=== PATIENT | male | born 1945 | race Caucasian/White ===

== ENCOUNTER → 2020-11-11 11:06 | Outpatient (BNVA) | payer MEDICARE, OTHER, SELFPAY | PROVIDERS: PCP Internal Medicine; Visit Provider Nurse Practitioner Family | DX: R42 Dizziness and giddiness (principal); I25.10 Atherosclerotic heart disease of native coronary artery without angina pectoris; E78.5 Hyperlipidemia, unspecified; I10 Essential (primary) hypertension; Z95.5 Presence of coronary angioplasty implant and graft; Z79.899 Other long term (current) drug therapy | CPT/HCPCS: 99212 ==

== ENCOUNTER → 2020-11-18 15:06 | Outpatient (BNVA) | payer MEDICARE, OTHER, SELFPAY | PROVIDERS: PCP Internal Medicine; Visit Provider Nurse Practitioner Family | DX: R42 Dizziness and giddiness (principal); I25.10 Atherosclerotic heart disease of native coronary artery without angina pectoris; E78.5 Hyperlipidemia, unspecified; I10 Essential (primary) hypertension; Z95.5 Presence of coronary angioplasty implant and graft | CPT/HCPCS: Q3014 ==

== ENCOUNTER → 2021-02-14 10:19 | Outpatient (BNVA) | payer MEDICARE, OTHER, SELFPAY | PROVIDERS: PCP Internal Medicine; Visit Provider Internal Medicine Cardiovascular Disease | DX: I25.10 Atherosclerotic heart disease of native coronary artery without angina pectoris (principal); R42 Dizziness and giddiness | CPT/HCPCS: 99212 ==

== ENCOUNTER → 2021-08-01 12:59 | Outpatient (BNVA) | payer MEDICARE, OTHER, SELFPAY | PROVIDERS: PCP Internal Medicine; Visit Provider Internal Medicine Cardiovascular Disease | DX: I25.10 Atherosclerotic heart disease of native coronary artery without angina pectoris (principal); R42 Dizziness and giddiness | CPT/HCPCS: 93005; 99212 ==

== ENCOUNTER → 2022-02-06 10:39 | Outpatient (BNVA) | payer MEDICARE, OTHER, SELFPAY | PROVIDERS: PCP Internal Medicine; Visit Provider Internal Medicine Cardiovascular Disease | DX: I25.10 Atherosclerotic heart disease of native coronary artery without angina pectoris (principal); I10 Essential (primary) hypertension | CPT/HCPCS: 99212 ==

== ENCOUNTER → 2022-08-14 10:51 | Outpatient (BNVA) | payer MEDICARE, OTHER, SELFPAY | PROVIDERS: Visit Provider Internal Medicine Cardiovascular Disease | DX: R07.9 Chest pain, unspecified (principal); I25.10 Atherosclerotic heart disease of native coronary artery without angina pectoris; I10 Essential (primary) hypertension | CPT/HCPCS: 93005; 99212 ==

== ENCOUNTER → 2022-08-24 09:43 | Outpatient (REF) | payer MEDICARE, OTHER, SELFPAY ==
--- NOTE | 2022-08-24 09:46 | CA_ITS ---
Transthoracic Echocardiogram Patient (Last, First, Middle): Silas Cazares, Gender: Male Date of : 1945 Age: 76 Procedure Date: 08/24/2022 Procedure Type: Transthoracic Echocardiogram Location: OP Height: 167.64 cm Weight: 77.11 kg BSA: 1.87 m2 Heart Rate: bpm BP: 130 / 80 mmHg Application Technician: TO Referring MD: Ruddy Ramos MD Symptoms: I25.10 - Atherosclerotic heart disease of [place] coronary artery without... Study Quality: Fair/Contrast Conclusions: - Normal left ventricular size and systolic function. There is mildly increased left ventricular wall thickness. The visually estimated ejection fraction is between 55-60%. - E/E prime ratio is between 8 and 15 consistent with indeterminate filling pressures. - Mildly increased right ventricular cavity size. There is normal right ventricular systolic function. - There is mild calcification of the aortic valve. There is no aortic valve stenosis. - There is mild dilatation of the ascending aorta measuring 3.50 cm. Findings Procedure Information Contrast agent, definity, is being given per protocol without apparent complications. Left Ventricle Normal left ventricular size and systolic function. There is mildly increased left ventricular wall thickness. The visually estimated ejection fraction is between 55-60%. There is no evidence of regional wall motion abnormalities. Abnormal diastolic function is noted. Spectral Doppler is indicative of a pseudonormal filling pattern. E/E prime ratio is between 8 and 15 consistent with indeterminate filling pressures. Right Ventricle Mildly increased right ventricular cavity size. There is normal right ventricular systolic function. Atria The left atrium is normal in size. The right atrium is normal in size. Aortic Valve Normal aortic valve structure and function. There is mild calcification of the aortic valve. There is no aortic valve stenosis. There is no aortic valve regurgitation. Mitral Valve The mitral valve appears normal. There is mild mitral annular calcification. There is no mitral valve regurgitation. There is no mitral valve stenosis. Pulmonic Valve Normal pulmonic valve structure and function. There is trace pulmonic valve regurgitation. Tricuspid Valve Normal tricuspid valve structure and function. There is no tricuspid valve regurgitation. Normal right atrial pressure. There is no evidence of pulmonary hypertension. Great Vessels There is mild dilatation of the ascending aorta measuring 3.50 cm. The visualized portions of the pulmonary artery and branches are normal. Venous The inferior vena cava is normal in size and collapses greater than 50% with inspiration. Pericardium/Pleural Prominent epicardial adipose tissue noted. There is no evidence of pericardial effusion. Prior Study Comparison No prior study available for comparison. Measurements 2D Linear Measurements IVSd: 1.18 0.6-0.9/0.6-1.0 cm LVIDd: 4.40 3.9-5.3/4.2-5.9 cm LVIDd Index: 2.35 2.4-3.2/2.2-3.1 cm/m2 LVIDs: 3.05 2.0-3.6 cm LVPWd: 1.01 0.7-1.1 cm LA Diam: 3.40 2.7-3.8/3.0-4.0 cm LAIDs Index: 1.82 1.5-2.3 cm/m2 LV Mass: 209.05 67-162/88-224 g LV Mass Index: 111.79 43-95/49-115 g/m2 LVOT Diam: 2.00 3.0+(-)1.3 cm 2D Systolic Function EF 4C: 62.60 >55% EF 2C: 60.70 >55% EF BiP: 61.80 >55% Mitral Valve MV Pk E: 0.76 MV PK A: 0.59 MV Decel Time: 221.00 E/A: 1.30 E'Lateral: 7.94 E'Medial: 5.87 E/E' Med: 13.00 E/E' Lat: 9.60 PHT: 65.00 MVA PHT: 3.38 Decel [place]: 3.46 Aortic Valve AoV Pk Suresh: 1.32 AoV Mn Suresh: 0.92 AoV VTI: 0.30 AoV Pk Grad: 7.00 Aov Mn Grad: 4.00 BOBBY Cont.VTI: 2.76 LVOT LVOT Pk Suresh: 1.13 LVOT Mn Suresh: 0.75 LVOT VTI: 0.26 LVOT Pk Grad: 5.00 LVOT Mn Grad: 3.00 LVOT Diam: 2.00 LVOT Area: 3.14 Diastolic Function MV Pk E: 0.76 MV Pk A: 0.59 E/A: 1.30 E'Medial: 5.87 E/E' Med: 13.00 E' Laterial: 7.94 E/E' Lat: 9.60 Right Ventricle TAPSE (mm): 22.60 TVS' Suresh: 10.90 Tricuspid Valve TR Pk Suresh: 1.55 TR Pk Grad: 10.00 RA Press: 3.00 RVSP: 13.00 Great Vessels Aorta Sinus of Valsalva: 3.21 2.0-3.[address] [place]: 2.55 1.7-3.4 cm Ao Asc: 3.50 2.1-3.4 cm Updated in Other Vendor System with Status of Final Rob Walker MD electronically signed on 08/26/2022 9:47:14 PM with status of Final
== END ==
LOC: HO.CARD 09:43
PROVIDERS: Visit Provider Internal Medicine Cardiovascular Disease
DX: I25.10 Atherosclerotic heart disease of native coronary artery without angina pectoris (principal)
CPT/HCPCS: 93306; Q9957

== ENCOUNTER → 2022-08-29 09:43 | Outpatient (REF) | payer MEDICARE, OTHER, SELFPAY ==
--- NOTE | ~2022-08-29 | NM_ITS ---
Exercise Myocardial perfusion study Indication: Exertional chest pain to evaluate for myocardial ischemia Technique: The patient was brought in for an exercise perfusion study on 08/29/2022. Patient performed exercise as per Scooby protocol and was injected 25 mCi of sestamibi was given intravenously one target HR was achieved. Images were obtained using the SPECT gamma camera interlaced with the gating device. Images were obtained in supine position. Resting perfusion study was performed on 09/06/2022. Patient was administered 25 mCi of sestamibi intravenously at rest. Images were then obtained in supine position. Images obtained with and without CT attenuation. Total DLP 84 mGy-cm. Images were processed with the software and compared side to side in short axis, horizontal long axis and vertical long axis views. Findings: The stress perfusion study showed non attenuated images show moderately reduced uptake in the basal inferior wall of the LV myocardium as well as moderately severely reduced uptake in the basal inferoseptal wall of the LV myocardium. Attenuated corrected images show mildly reduced uptake in the inferior and inferoseptal wall of the cardiac.. The gated study shows normal LV systolic function with calculated LVEF of 70%. LV cavity is normal in size. The gated study shows normal systolic wall thickening and contraction of all segments. There is no transient ischemic dilation. Resting study shows improved uptake in the inferoseptum and inferior wall of the LV myocardium. Gating at rest reveals normal systolic wall motion with ejection fraction at 62%. The findings are consistent with inferior and inferoseptal ischemia in RCA territory. NM/NM cardiolite stress test Impression: 1. RCA territory ischemia 2. Gated LVEF is 71% 3. Transient ischemic dilatation not present Stress EKG is positive for ischemia
--- NOTE | 2022-08-29 09:45 | CA_ITS ---
Acquisition Time: 2022-08-29 10:06:00 Total Exercise Time: 00:06:40 Test Indications: Fatigue CHEST PAIN Medications: ASA CLOPIDOGREL ISOSORBIDE METOPROLOL ROSUVASTATIN Protocol: JILL Max HR: 118 BPM 83% of Pred: 142 BPM Max BP: 150/068 mmHG Max Work Load: 8.0 METS Exercise stress test with exercise 6 min 40 sec of Jill protocol, achieving 84% MPHR, with need to stop due to fatigue, without anginal symptoms, with isolated PACs, with blunting of BP based on readings reported by biomedical instrument technician ( BP at rest 138/78, just after peak exercise 150/68), with EKG chnages meeting criteira for ischemia starting in stage 2: horizontal to downsloping ST depression 1-1.5mm inferiolry and V5-V6 which improves in recovery. Nuclear images pending. Test reviewed with Dr Ramos Referred By: Ruddy Ramos Overread By: KRISHNA DEE
== END ==
LOC: HO.CARD 09:43
PROVIDERS: Visit Provider Internal Medicine Cardiovascular Disease
DX: R07.9 Chest pain, unspecified (principal)
CPT/HCPCS: 78452; 93017; A9500; J2785

== ENCOUNTER → 2022-09-12 12:44 | Outpatient (BNVA) | payer MEDICARE, OTHER, SELFPAY | PROVIDERS: Visit Provider Internal Medicine Cardiovascular Disease | DX: I25.10 Atherosclerotic heart disease of native coronary artery without angina pectoris (principal) | CPT/HCPCS: 99212 ==

== ENCOUNTER → 2022-12-24 10:32 | Outpatient (BNVA) | payer MEDICARE, OTHER, SELFPAY | PROVIDERS: Visit Provider Internal Medicine Cardiovascular Disease | DX: I25.10 Atherosclerotic heart disease of native coronary artery without angina pectoris (principal); I10 Essential (primary) hypertension | CPT/HCPCS: 99212 ==

== ENCOUNTER 2023-03-21 09:42 | Outpatient (AMB) | payer MEDICARE, OTHER, SELFPAY ==
[2023-03-21 09:43] VITALS: BP 130/76; PULSE 51; BMI 24.9
--- NOTE | 2023-03-21 09:43 | A.OFFVIS_ITS ---
Intake Vital Signs 03/21/23 09:43 Height 5 ft 7 in Weight 158 lb 11.725 oz BMI 24.9 BP 130/76 Blood Pressure Location Lt brachial Position Sitting Pulse 51 Intake Visit Reasons: 6 mth f/up Intake Note: 6 month follow-up feeling good [employer] Required: No Allergies No Known Allergies Allergy (Verified 11/18/20 15:09) Medication List - Last Reconciled 03/21/23 by Ruddy Ramos MD aspirin (Adult Aspirin Regimen) 81 mg PO DAILY clopidogrel (Plavix) 75 mg PO DAILY 90 days ferrous sulfate 325 mg PO DAILY isosorbide mononitrate ER 60 mg PO DAILY metoprolol succinate ER 25 mg PO DAILY 90 days rosuvastatin 40 mg PO DAILY 90 days HPI HPI Comments History of Present Illness Details Will comes for follow-up. He tries to maintain activity level but says is limited at home with exercise on the treadmill to about 13 minutes of walking due to leg discomfort. He has not had any anginal discomfort since been on increase isosorbide and says he feels well. Denies any symptoms of angina at rest. Takes all his medications. Denies any lightheadedness, syncope. No bleeding issues or neurologic events. Denies any heart failure symptoms. [facility] Medical History CAD (coronary artery disease) HLD (hyperlipidemia) HTN (hypertension) Surgical History History of cardiac cath Stented coronary artery Family History Father No problems noted. Mother CVD (cardiovascular disease) Review of Systems Const Denies chills, Denies fatigue, Denies fever(s), Denies frequent falls, Denies weakness, Denies weight gain and Denies weight loss ENT Denies dizziness Card Denies chest pain, Denies leg edema, Denies lightheadedness, Denies palpitations, Denies dyspnea, Denies dyspnea on exertion, Denies orthopnea and Denies other (loss of consciousness) Resp Denies cough, Denies dyspnea and Denies dyspnea on exertion GI Denies hematochezia and Denies change in stool character Musc Denies abnormal gait, Denies muscle weakness, Denies numbness, Denies radiating pain into limb and Denies tingling Neuro Denies abnormal gait, Denies dizziness, Denies frequent falls, Denies numbness, Denies tingling and Denies weakness Endo Denies fatigue and Denies palpitations Physical Exam Vital Signs: Last Vital Signs Pulse 51 03/21/23 09:43 BP 130/76 03/21/23 09:43 BMI result Body Mass Index 24.9 Const General: cooperative, comfortable, no acute distress, alert and awake Nutritional Appearance: average body habitus Orientation/consciousness: patient oriented x3 Limitations: no limitations Neck Neck: Yes trachea midline, Yes supple and Yes no JVD Resp Effort & Inspection: normal respiratory effort Auscultation: clear to auscultation bilaterally Cardio Jugular venous distension: no JVD Palpation: normal PMI Rate: regular rate Rhythm: regular rhythm Heart sounds: S1 normal heart sound present, S2 normal heart sound present, no click, no gallops and no murmurs Skin General skin exam: no rashes or lesions noted Neuro General: patient oriented x3 and no focal motor deficits Extrem General: Yes no clubbing, cyanosis or edema Assessment & Plan Assessment & Plan (1) CAD (coronary artery disease): Code(s): I25.10 - Atherosclerotic heart disease of [place] coronary artery without angina pectoris Plan: CAD with resolved symptoms of angina on dual antianginal therapy with back to his functional capacity. Limitations currently is bilateral leg discomfort or fatigue that prevents him from exercising for long period of time. However he satisfied his current activity level. Advised to call me with any new symptoms. If he has progressive anginal symptoms may need to pursue invasive cardiac catheterization, given that he is generally in good shape. Given his diffuse vascular disease currently on dual antiplatelet therapy and that will be continued. Continue aggressive control blood pressure, see below. Continue high-intensity statin therapy with target goal LDL less than 70 mg/dL. Advised lipid panel in 6 months. Management of coronary artery disease was discussed with him. He understands and agrees. (2) HTN (hypertension): Code(s): I10 - Essential (primary) hypertension Plan: Hypertension which is currently well optimized. Continue current medications. Importance of good blood pressure control was discussed. Target goal blood pressure less than 130/84. Advised to monitor blood pressure at home maintain a log. Advised low-salt diet. Advised to maintain activity level as tolerated. Follow up in the clinic in 6 months time, sooner p.r.n.. Thank you for allowing me to partake in his care Medications: Refilled isosorbide mononitrate ER 60 mg PO DAILY 90 tabs 3RF Coding Level of Care Code Est Pt Level 4 (90348) Diagnoses CAD (coronary artery disease) I25.10 HTN (hypertension) I10
== END 2023-03-21 09:58 | disposition home or self-care (01) ==
PROVIDERS: Visit Provider Internal Medicine Cardiovascular Disease
DX: I25.10 Atherosclerotic heart disease of native coronary artery without angina pectoris (principal); I10 Essential (primary) hypertension
CPT/HCPCS: 99214

== ENCOUNTER → 2023-03-21 09:42 | Outpatient (BNVA) | payer MEDICARE, OTHER, SELFPAY | PROVIDERS: Visit Provider Internal Medicine Cardiovascular Disease | DX: I25.10 Atherosclerotic heart disease of native coronary artery without angina pectoris (principal); I10 Essential (primary) hypertension; Z79.899 Other long term (current) drug therapy | CPT/HCPCS: 99212 ==

== ENCOUNTER 2023-10-10 09:48 | Outpatient (AMB) | payer MEDICARE, OTHER, SELFPAY ==
[2023-10-10 09:50] VITALS: BP 120/76; PULSE 70; BMI 25.2
--- NOTE | 2023-10-10 09:50 | A.OFFVIS_ITS ---
Intake Vital Signs 10/10/23 09:50 Height 5 ft 7 in Weight 160 lb 14.999 oz BMI 25.2 BP 120/76 Blood Pressure Location Lt brachial Position Sitting Pulse 70 Intake Visit Reasons: 6 month follow up Intake Note: 6 month follow-up with ekg feeling ok Data Governance Consultant Required: No Allergies No Known Allergies Allergy (Verified 11/18/20 15:09) Medication List - Last Reconciled 10/10/23 by Ruddy Ramos MD aspirin (Adult Aspirin Regimen) 81 mg PO DAILY clopidogrel 75 mg PO DAILY ferrous sulfate 325 mg PO DAILY isosorbide mononitrate ER 60 mg PO DAILY metoprolol succinate ER 25 mg PO DAILY rosuvastatin 40 mg PO DAILY HPI HPI Comments History of Present Illness Details Will comes for follow-up. He said that he feels vague discomfort in the precordial area at nighttime usually when his blood pressure is elevated. However he is very vague about the symptoms. On asking whether he gets these symptoms with exertion he denies. He says he does get anxious sometimes in the evening time his blood pressure is high in the heart rate is in the 80s. He says the symptoms are not also similar to his anginal symptoms but he is again very vague about his symptoms. He denies any shortness of breath, lightheadedness, syncope. Takes all his medications regularly. [facility] Medical History CAD (coronary artery disease) HLD (hyperlipidemia) HTN (hypertension) Surgical History Stented coronary artery History of cardiac cath Family History Father No problems noted. Mother CVD (cardiovascular disease) Review of Systems Const Denies chills, Denies fatigue, Denies fever(s), Denies frequent falls, Denies weakness, Denies weight gain and Denies weight loss ENT Denies dizziness Card Denies chest pain, Denies leg edema, Denies lightheadedness, Denies palpitations, Denies dyspnea, Denies dyspnea on exertion, Denies orthopnea and Denies other (loss of consciousness) Resp Denies cough, Denies dyspnea and Denies dyspnea on exertion GI Denies hematochezia and Denies change in stool character Musc Denies abnormal gait, Denies muscle weakness, Denies numbness, Denies radiating pain into limb and Denies tingling Neuro Denies abnormal gait, Denies dizziness, Denies frequent falls, Denies numbness, Denies tingling and Denies weakness Endo Denies fatigue and Denies palpitations Physical Exam Vital Signs: Last Vital Signs Pulse 70 10/10/23 09:50 BP 120/76 10/10/23 09:50 BMI result Body Mass Index 25.2 Const General: cooperative, comfortable, no acute distress, alert and awake Nutritional Appearance: average body habitus Orientation/consciousness: patient oriented x3 Limitations: no limitations Neck Neck: Yes trachea midline, Yes supple and Yes no JVD Resp Effort & Inspection: normal respiratory effort Auscultation: clear to auscultation bilaterally Cardio Jugular venous distension: no JVD Palpation: normal PMI Rate: regular rate Rhythm: regular rhythm Heart sounds: S1 normal heart sound present, S2 normal heart sound present, no click, no gallops and no murmurs Skin General skin exam: no rashes or lesions noted Neuro General: patient oriented x3 and no focal motor deficits Extrem General: Yes no clubbing, cyanosis or edema Office Procedures EKG Details: EKG shows normal sinus rhythm with nonspecific ST changes [id number], Complete Assessment & Plan Assessment & Plan (1) CAD (coronary artery disease): Code(s): I25.10 - Atherosclerotic heart disease of [place] coronary artery without angina pectoris Plan: Coronary artery disease with very vague precordial chest discomfort under stressful situation and/anxiety with elevated blood pressure. This mostly happens at nighttime. I will add amlodipine 2.5 mg at suppertime to control his symptoms. Continue metoprolol as well as isosorbide therapy. Advised to call me with exertional symptoms. There is high likelihood of progressive coronary artery disease and this was discussed with him. He is advised to call me with any change in his symptoms. Continue low-dose aspirin therapy. Also on Plavix therapy due to peripheral vascular disease. Continue high-intensity statin therapy. Target goal LDL less than 70 mg/dL. If he develops different symptoms with exertion we discussed about possibly pursuing cardiac catheterization. Will follow up in the clinic in 6 months time, sooner p.r.n.. Medications: New amlodipine 2.5 mg PO .Suppertime 30 tabs 5RF Coding Level of Care Code Est Pt Level 4 (72896) Diagnoses CAD (coronary artery disease) I25.10 CPT Codes EKG - CPT: 78552-[id number], Complete ([id number])
== END 2023-10-10 10:08 | disposition home or self-care (01) ==
PROVIDERS: Visit Provider Internal Medicine Cardiovascular Disease
DX: I25.10 Atherosclerotic heart disease of native coronary artery without angina pectoris (principal)
CPT/HCPCS: 93010; 99214

== ENCOUNTER → 2023-10-10 09:48 | Outpatient (BNVA) | payer MEDICARE, OTHER, SELFPAY | PROVIDERS: Visit Provider Internal Medicine Cardiovascular Disease | DX: I25.10 Atherosclerotic heart disease of native coronary artery without angina pectoris (principal); I10 Essential (primary) hypertension; Z79.899 Other long term (current) drug therapy | CPT/HCPCS: 93005; 99212 ==

== ENCOUNTER 2024-04-13 10:50 | Outpatient (AMB) | payer MEDICARE, OTHER, SELFPAY ==
[2024-04-13 10:54] VITALS: BP 126/82; PULSE 66; BMI 25.5
--- NOTE | 2024-04-13 10:54 | MHC.OFFVIS ---
Vital Signs 04/13/24 10:54 Height 5 ft 7 in Weight 163 lb 2.273 oz BMI 25.5 BP 126/82 Blood Pressure Location Lt brachial Position Sitting Pulse 66 Intake Visit Reasons: 6 month follow up Intake Note: 6 month follow-up feeling ok Assistant Coach Required: No Allergies No Known Allergies Allergy (Verified 11/18/20 15:09) Medication List - Last Reconciled 04/13/24 by Ruddy Ramos MD aspirin (Adult Aspirin Regimen) 81 mg PO DAILY clopidogrel 75 mg PO DAILY ferrous sulfate 325 mg PO DAILY isosorbide mononitrate ER 60 mg PO DAILY metoprolol succinate ER 25 mg PO DAILY rosuvastatin 40 mg PO DAILY HPI Comments Details: Silas comes for follow-up. 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 Currently being managed by your office. Has not seen a neurologist. He said due to that his activity level has reduced and he is not having any anginal discomfort. Maintains his day-to-day activity level at a slower pace. Denies any heart failure symptoms. Denies any claudication symptoms. No lightheadedness, syncope. He said he has had couple of falls but he is avoiding to use any assist devices at this point time. No prolonged palpitation irregular heartbeat. Takes all his medications. [facility] Medical History CAD (coronary artery disease) HLD (hyperlipidemia) HTN (hypertension) Surgical History Stented coronary artery History of cardiac cath Family History Father No problems noted. Mother CVD (cardiovascular disease) Review of Systems Const Denies chills, Denies fatigue, Denies fever(s), Denies frequent falls, Denies weakness, Denies weight gain and Denies weight loss ENT Denies dizziness Card Denies chest pain, Denies leg edema, Denies lightheadedness, Denies palpitations, Denies dyspnea, Denies dyspnea on exertion, Denies orthopnea and Denies other (loss of consciousness) Resp Denies cough, Denies dyspnea and Denies dyspnea on exertion GI Denies hematochezia and Denies change in stool character Musc Denies abnormal gait, Denies muscle weakness, Denies numbness, Denies radiating pain into limb and Denies tingling Neuro Denies abnormal gait, Denies dizziness, Denies frequent falls, Denies numbness, Denies tingling and Denies weakness Endo Denies fatigue and Denies palpitations Physical Exam Vital Signs: Last Vital Signs Pulse 66 04/13/24 10:54 BP 126/82 04/13/24 10:54 BMI result Body Mass Index 25.5 Const General: cooperative, comfortable, no acute distress, alert and awake Nutritional Appearance: average body habitus Orientation/consciousness: patient oriented x3 Limitations: no limitations Neck Neck: Yes trachea midline, Yes supple and Yes no JVD Resp Effort & Inspection: normal respiratory effort Auscultation: clear to auscultation bilaterally Cardio Jugular venous distension: no JVD Palpation: normal PMI Rate: regular rate Rhythm: regular rhythm Heart sounds: S1 normal heart sound present, S2 normal heart sound present, no click, no gallops and no murmurs Skin General skin exam: no rashes or lesions noted Neuro General: patient oriented x3 and no focal motor deficits Extrem General: Yes no clubbing, cyanosis or edema Assessment & Plan Assessment & Plan (1) CAD (coronary artery disease): Code(s): I25.10 - Atherosclerotic heart disease of [place] coronary artery without angina pectoris Category: Medical Plan: Stable CAD with no recurrent symptoms on dual antianginal therapy most likely due to his reduced activity level. He however is not having angina at current lifestyle. No further invasive workup is indicated. I would continue with his dual antianginal therapy with metoprolol isosorbide. Advised to call me with any progressive symptoms. Continue lifelong dual antiplatelet therapy which has done well with him given his underlying diffuse atherosclerotic process including peripheral vascular disease. Continue high-intensity statin therapy. Target goal LDL less than 70 mg/dL. Aggressive blood pressure control needs to be pursued. (2) HTN (hypertension): Code(s): I10 - Essential (primary) hypertension Category: Medical Plan: Blood pressure is currently well optimized advised to monitor blood pressure at home maintain a log. Goal blood pressure less than 130/84. Low-salt diet was discussed. Advised to maintain activity level as tolerated in his safe manner. Will follow up in the clinic in 6 months time, sooner p.r.n.. Thank you for allowing me to partake in his care Coding Level of Care Code Est Pt Level 4 (85985) Diagnoses CAD (coronary artery disease) I25.10 HTN (hypertension) I10
== END 2024-04-13 11:21 | disposition home or self-care (01) ==
PROVIDERS: Visit Provider Internal Medicine Cardiovascular Disease
DX: I25.10 Atherosclerotic heart disease of native coronary artery without angina pectoris (principal); I10 Essential (primary) hypertension
CPT/HCPCS: 99214

== ENCOUNTER → 2024-04-13 10:50 | Outpatient (BNVA) | payer MEDICARE, OTHER, SELFPAY | PROVIDERS: Visit Provider Internal Medicine Cardiovascular Disease | DX: I25.10 Atherosclerotic heart disease of native coronary artery without angina pectoris (principal); I10 Essential (primary) hypertension | CPT/HCPCS: 99212 ==

== ENCOUNTER 2024-10-12 12:14 | Outpatient (AMB) | payer MEDICARE, OTHER, SELFPAY ==
[2024-10-12 12:31] VITALS: BP 120/80; PULSE 63; BMI 24.5
--- NOTE | 2024-10-12 12:31 | MHC.OFFVIS ---
Vital Signs 10/12/24 12:31 Height 5 ft 7 in Weight 156 lb 8.451 oz BMI 24.5 BP 120/80 Blood Pressure Location Lt brachial Position Sitting Pulse 63 Intake Visit Reasons: 6m follow up Intake Note: 6 month follow-up with ekg hearts doing good Personal Banking Advisor Required: No Allergies No Known Allergies Allergy (Verified 11/18/20 15:09) Medication List - Last Reconciled 10/12/24 by Ruddy Ramos MD aspirin (Adult Aspirin Regimen) 81 mg PO DAILY clopidogrel 75 mg PO DAILY ferrous sulfate 325 mg PO DAILY isosorbide mononitrate ER 60 mg PO DAILY metoprolol succinate ER 25 mg PO DAILY rosuvastatin 40 mg PO DAILY HPI Comments Details: Will comes for follow-up. He has been doing well, says that he has been gradually slowing down. He has developed some tremors in his right hand and notices some fasciculations in his left lower extremity. Denies any clear symptoms of claudication. Denies any other cardiac symptoms of exertional chest pain or shortness of breath. Takes all his medications. His symptoms of lightheadedness have improved. He has not had any syncopal episodes. He has not had any prolonged palpitation irregular heartbeat. He said about month and half ago he kind of while moving in bed started developing some left hip pain after he tried to move out of the bed and appears to be having some form of musculoskeletal injury. [facility] Medical History CAD (coronary artery disease) HLD (hyperlipidemia) HTN (hypertension) Surgical History Stented coronary artery History of cardiac cath Family History Father No problems noted. Mother CVD (cardiovascular disease) Review of Systems Const Denies chills, Denies fatigue, Denies fever(s), Denies frequent falls, Denies weakness, Denies weight gain and Denies weight loss ENT Denies dizziness Card Denies chest pain, Denies leg edema, Denies lightheadedness, Denies palpitations, Denies dyspnea, Denies dyspnea on exertion, Denies orthopnea and Denies other (loss of consciousness) Resp Denies cough, Denies dyspnea and Denies dyspnea on exertion GI Denies hematochezia and Denies change in stool character Musc Denies abnormal gait, Denies muscle weakness, Denies numbness, Denies radiating pain into limb and Denies tingling Neuro Denies abnormal gait, Denies dizziness, Denies frequent falls, Denies numbness, Denies tingling and Denies weakness Endo Denies fatigue and Denies palpitations Physical Exam Vital Signs: Last Vital Signs Pulse 63 10/12/24 12:31 BP 120/80 10/12/24 12:31 BMI result Body Mass Index 24.5 Const General: cooperative, comfortable, no acute distress, alert and awake Nutritional Appearance: average body habitus Orientation/consciousness: patient oriented x3 Limitations: no limitations Neck Neck: Yes trachea midline, Yes supple and Yes no JVD Resp Effort & Inspection: normal respiratory effort Auscultation: clear to auscultation bilaterally Cardio Jugular venous distension: no JVD Palpation: normal PMI Rate: regular rate Rhythm: regular rhythm Heart sounds: S1 normal heart sound present, S2 normal heart sound present, no click, no gallops and no murmurs Skin General skin exam: no rashes or lesions noted Neuro General: patient oriented x3 and no focal motor deficits Extrem General: Yes no clubbing, cyanosis or edema Office Procedures EKG Details: EKG shows normal sinus rhythm normal EKG at 63 beats per minute [id number], Complete Assessment & Plan Assessment & Plan (1) CAD (coronary artery disease): Code(s): I25.10 - Atherosclerotic heart disease of [place] coronary artery without angina pectoris Category: Medical Plan: Diffuse atherosclerotic disease with peripheral vascular disease and stable coronary artery disease no symptoms of angina. Currently on dual antiplatelet agent and has done well with no cardiovascular or cerebrovascular events. Continue the same. Currently on dual antianginal therapy with isosorbide and metoprolol and has done well with no symptoms of angina. No further cardiac workup is indicated at this point time. He is advise and recommend to maintain activity level as tolerated. Advised to call me with any new symptoms. Continue high-intensity statin therapy with target goal LDL less than 70 mg/dL. Continue aggressive blood pressure control. (2) HTN (hypertension): Code(s): I10 - Essential (primary) hypertension Category: Medical Plan: Longstanding hypertension with symptoms intermittently of orthostatic lightheadedness which have improved. Advised to maintain adequate hydration. Orthostatic precautions were discussed blood pressure is currently well optimized. Advised to avoid salt loading. Advised to monitor blood pressure intermittently at home and maintain a log. Will follow up in the clinic in 1 year's time, sooner p.r.n.. Thank you for allowing me to partake in his care Coding Level of Care Code Est Pt Level 4 (41129) Complex EM visit Add On G2211 Diagnoses CAD (coronary artery disease) I25.10 HTN (hypertension) I10 CPT Codes EKG - CPT: 18500-[id number], Complete ([id number])
== END 2024-10-12 12:51 | disposition home or self-care (01) ==
LOC: HO.HCS 12:15
PROVIDERS: Visit Provider Internal Medicine Cardiovascular Disease
DX: I25.10 Atherosclerotic heart disease of native coronary artery without angina pectoris (principal); I10 Essential (primary) hypertension
CPT/HCPCS: 93010; 99214; G2211

== ENCOUNTER → 2024-10-12 12:14 | Outpatient (BNVA) | payer MEDICARE, OTHER, SELFPAY | PROVIDERS: Visit Provider Internal Medicine Cardiovascular Disease | DX: I25.10 Atherosclerotic heart disease of native coronary artery without angina pectoris (principal); I10 Essential (primary) hypertension | CPT/HCPCS: 93005; 99212 ==

== ENCOUNTER 2025-07-05 09:57 | Outpatient (AMB) | payer OTHER, SELFPAY ==
--- NOTE | 2025-07-05 10:07 | MHC.OFFVIS ---
Intake Visit Reasons: 6m follow up Allergies No Known Allergies Allergy (Verified 11/18/20 15:09) HPI Comments Details: The patient is an 79 year old male presenting for follow-up of mild Parkinson's disease. He reports his overall condition is about the same. The patient reports that his memory has never been very good. He denies falls, visual hallucinations, and kicking or shouting during sleep. Regarding his sleep, he sometimes wakes after about an hour and a half but is able to fall back asleep easily. For bladder control, he urinates every hour as a precaution and wakes up one to two times per night to void. [facility] Medical History CAD (coronary artery disease) HLD (hyperlipidemia) HTN (hypertension) Surgical History Stented coronary artery History of cardiac cath Family History Father No problems noted. Mother CVD (cardiovascular disease) Review of Systems Narrative - Neurological: Reports poor memory. - Denies falls, visual hallucinations, kicking or shouting during sleep. - Psychiatric: Reports good mood. - Genitourinary: Reports urinary frequency, voiding every hour preventatively, and nocturia 1-2 times per night. - Sleep: Reports sometimes waking after 90 minutes but falls back to sleep easily. Physical Exam Neuro Other: Mental Status: Alert and oriented to person, place, and time. Normal attention. Normal spontaneous speech, fluency, and comprehension. Cranial Nerves: CN II: Visual [place] full to confrontation, visual acuity intact. CN III, IV, : Pupils equal, round, reactive to light and accommodation. Extraocular movements are normal. CN V: Facial sensation is normal. CN VII: Facial movements symmetrical. CN VIII: Hearing intact to bedside conversation is normal. CN IX, X: Palate elevates symmetrically. CN XI: Shoulder shrug and head turn symmetrical. CN XII: Tongue midline without atrophy or fasciculations. Motor: Bulk and tone normal in all extremities. No significant muscle weakness in arms and legs. No drift. Reflexes: Deep tendon reflexes 2+ and symmetric. Plantar response down-going bilaterally. Coordination: Wrrxsb-gs-srgp and glef-ra-ajol testing normal. No dysmetria. Gait and Station: Slow and cautious. Decreased arm swing. Extrapyramidal: Decreased facial expression blinking. Mild right hand resting tremor. Speech: Normal; no dysarthria or tremor. Assessment & Plan Assessment & Plan (1) Parkinson disease: Comment: MRI brain WO in 2023: Mild WM disease, lacunar infarct right cerebellum, right ant temp encephalomalacia, left cochlear fluid (reported). Code(s): G20.A1 - Parkinson's disease without dyskinesia, without mention of fluctuations Category: Medical Qualifiers: Dyskinesia presence: without dyskinesia Fluctuating manifestations: without fluctuating manifestations Qualified Code(s): G20.A1 - Parkinson's disease without dyskinesia, without mention of fluctuations Plan Impression: Mild Parkinson's disease Recommendations: Carbidopa/levodopa, 25/100, 1 3 times a day. He is advised to stay active. I confirmed that the patient is doing well and his condition is stable. We discussed that no changes to his carbidopa/levodopa medication are needed at this point. I advised him to stay active. We also arranged to update his pharmacy to a [facility] in [place] due to a recent move. Medications: New carbidopa-levodopa 25-100 mg (Sinemet) 1 tab PO TID 270 tabs 1RF Coding Level of Care Code Est Pt Level 3 (12550) Diagnoses Parkinson's disease without dyskinesia or fluctuating manifestations G20.A1 Dyskinesia presence: without dyskinesia Fluctuating manifestations: without fluctuating manifestations
== END 2025-07-05 10:16 | disposition home or self-care (01) ==
LOC: HO.HSM 09:58
PROVIDERS: PCP Family Medicine; Referring Provider Family Medicine; Visit Provider Psychiatry & Neurology Neurology
DX: G20.A1 Parkinson's disease without dyskinesia, without mention of fluctuations (principal)
CPT/HCPCS: 99213

== ENCOUNTER → 2025-07-05 09:57 | Outpatient (BNVA) | payer OTHER, SELFPAY | PROVIDERS: PCP Family Medicine; Referring Provider Family Medicine; Visit Provider Psychiatry & Neurology Neurology | DX: G20.A1 Parkinson's disease without dyskinesia, without mention of fluctuations (principal) | CPT/HCPCS: 99212 ==